=== PATIENT | male | born 1955 | race Hispanic/Latino ===

== ENCOUNTER 2020-06-08 15:45 | Emergency (ER) | payer MEDICARE ==
[~2020-06-08] VITALS: Ht 162.6 cm; Wt 68.0 kg
--- NOTE | 2020-06-08 17:39 | Emergency Department Note ---
History of Present Illnes History of Present Illness Chief Complaint: General Medicine Complaints History of Present Illness This is a 64 year old male c/o non radiating right shoulder pain x 3 weeks denies trauma states pain came on suddenly. He has been taking [place] for his pain at home. Historian: Patient Arrival Mode: Car History limited by: language barrier Onset (how long ago): week(s) (3) Radiation: Reports neck Severity: moderate Onset quality: sudden Duration (how long): day(s) (3) Timing of current episode: constant Progression: worsening Relieving factors: none, immobilization Exacerbating factors: movement Associated symptoms: Reports denies other symptoms Past Medical/Family History Physician Review I have reviewed the patient's past medical and family history. Any updates have been documented here. Past Medical History Recent Fever: No Clinical Suspicion of Infectio: No New/Unexplained Change in Ment: No Past Medical History: Diabetes, Anemia Other Medical History: schizophrenia bipolar Past Surgical History: Cholecysctectomy, Appendectomy, Hernia Repair Social History Physically hurt or threatened: No Review of Systems Review of Systems Constitutional: Reports no symptoms EENTM: Reports no symptoms Cardiovascular: Reports no symptoms Respiratory: Reports no symptoms Gastrointestinal: Reports no symptoms Genitourinary: Reports no symptoms Musculoskeletal: Reports no symptoms, Reports as per HPI, Reports joint pain (R shoulder) Integumentary: Reports no symptoms Neurological: Reports no symptoms Psychological: Reports no symptoms Endocrine: Reports no symptoms Hematological/Lymphatic: Reports no symptoms Physical Exam Related Data Allergies: Coded Allergies: No Known Allergies (Unverified , 06/08/20) Triage Vital Signs Vital Signs Date Time Temp Pulse Resp B/P (MAP) Pulse Ox O2 Delivery O2 Flow Rate FiO2 06/08/20 16:09 97.9 66 18 107/72 99 Room Air Vital signs reviewed: Yes Physical Exam CONSTITUTIONAL Constitutional: Present well-developed, Present well-nourished HENT HENT: Present normocephalic, Present atraumatic, Present oropharynx clear/moist, Present nose normal HENT L/R: Present left ext ear normal, Present right ext ear normal EYES Eyes: Reports PERRL, Reports conjunctivae normal NECK Neck: Present ROM normal PULMONARY Pulmonary: Present effort normal, Present breath sounds normal CARDIOVASCULAR Cardiovascular: Present regular rhythm, Present heart sounds normal, Present ca pillary refill normal, Present normal rate GASTROINTESTINAL Abdominal: Present soft, Present nontender, Present bowel sounds normal GENITOURINARY Genitourinary: Present exam deferred SKIN Skin: Present warm, Present dry MUSCULOSKELETAL Musculoskeletal: Present ROM normal, Present other (Normal ORM of R shoulder and no significant ternderness noted. 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 Exam shows no signs of trauma and he has full range of motion of the right arm. Pain is graduated by movement. Pulses are intact and he retained sensation. Initial differential includes cardiac mimic versus muscular skeletal pain versus rotator cuff injury. Cardiopulmonary workup is benign as well as x-ray of the right shoulder. We'll refer him to orthopedics and instructed him to take his pain medication at home. Patient states agreement to plan and is appropriate for discharge. Workup is largely unremarkable and instructed him to use his pain medications at home. He will follow up with regular provider or orthopedics if he continues to have this pain. Patient is appropriate for discharge. Part of this note was dictated with Filomena and is subject to some recognition errors. Reassessment Reassessment time: 19:00 Assessment & Plan Final Impression: (1) Shoulder pain Depart Disposition: HOME, SELF-CARE Last Vital Signs Date Time Temp Pulse Resp B/P (MAP) Pulse Ox O2 Delivery O2 Flow Rate FiO2 06/08/20 16:09 97.9 66 18 107/72 99 Room Air Abraham Brady MD Jun 08, 2020 17:39
--- NOTE | 2020-06-08 18:29 | Diagnostic Imaging Report ---
Examination: Single AP view of the chest. COMPARISON: None. INDICATION: Shoulder pain DISCUSSION: Lines/tubes: None. Lungs: The lungs are well inflated and clear. No pneumonia or pulmonary edema. Pleura: No pleural effusion or pneumothorax. Heart and mediastinum: The heart and the mediastinum are unremarkable. Bones and soft tissues: No acute bony abnormalities. IMPRESSION: 1. No acute cardiopulmonary abnormalities. Signed by: Dr. Luis Davis M.D. on 06/08/2020 6:26 PM
--- NOTE | 2020-06-08 18:30 | Diagnostic Imaging Report ---
Exam: Right shoulder 2 views History: Shoulder pain Comparison: None. Findings: No fracture or malalignment. Mild acromioclavicular and glenohumeral arthrosis. No abnormal soft tissue calcification or soft tissue defect. Impression: No acute osseous abnormality Signed by: Dr. Luis Davis M.D. on 06/08/2020 6:27 PM
[2020-06-08 18:37] LABS: BASOPHILS # (AUTO) 0.1 (0.0-0.1); EOSINOPHILS # (AUTO) 0.2 (0.0-0.4); EOSINOPHILS % 2.4 % (0.0-6.0); HEMATOCRIT 35.2 % (38.2-49.6); HEMOGLOBIN 11.1 g/dL (14.0-18.0); LYMPHOCYTES # (AUTO) 1.4 (1.0-3.2); LYMPHOCYTES % 20.6 % (18.0-39.1); MEAN CORPUSCULAR HEMOGLOBIN 28.5 pg (28-32); MEAN CORPUSCULAR HGB CONC 31.5 g/dL (31-35); MEAN CORPUSCULAR VOLUME 90.5 fL (81-99); MONOCYTES # (AUTO) 0.3 (0.2-0.8); MONOCYTES % 4.4 % (4.4-11.3); NEUTROPHILS # (AUTO) 4.8 (2.1-6.9); NEUTROPHILS % 71.5 % (38.7-80.0); PLATELET COUNT 108 x10e3/uL (140-360); RED BLOOD COUNT 3.89 x10e6/uL (4.3-5.7); RED CELL DISTRIBUTION WIDTH 15.1 % (11.7-14.4)
[2020-06-08 18:40] LABS: INR 0.93; PROTHROMBIN TIME 12.9 seconds (11.9-14.5)
[2020-06-08 18:41] LABS: PARTIAL THROMBOPLASTIN TIME 26.9 seconds (23.8-35.5)
[2020-06-08 18:47] LABS: ALANINE AMINOTRANSFERASE 8 IU/L (0-55); ALBUMIN 3.8 g/dL (3.5-5.0); ALBUMIN/GLOBULIN RATIO 1.2 (0.8-2.0); ALKALINE PHOSPHATASE 77 IU/L (40-150); BLOOD UREA NITROGEN 13 mg/dL (7-26); BUN/CREATININE RATIO 14 (6-25); CALCIUM 8.6 mg/dL (8.4-10.2); CARBON DIOXIDE 24 mmol/L (22-29); CHLORIDE 106 mmol/L (98-107); CREATINE KINASE 65 IU/L (30-200); CREATININE, SERUM 0.95 mg/dL (0.72-1.25); EST GLOMERULAR FILTRATION RATE > 60 ML/MIN (60-); GLUCOSE 94 mg/dL (74-118); SODIUM 139 mmol/L (136-145)
[2020-06-08 19:25] LABS: LYMPHOCYTES % (MANUAL) 22 % (19-48); MONOCYTES % (MANUAL) 5 % (3.4-9.0); NEUTROPHILS % (MANUAL) 70 % (40-74); PLATELET ESTIMATE SLIGHTLY DECREASED; PLATELET MORPHOLOGY COMMENT FEW LARGE; RBC MORPHOLOGY COMMENT NORMAL
[2020-06-08] MEDS ORDERED: TRAMADOL HCL 50 MG TAB PO ONE (22:15)
[2020-06-08 23:25] VITALS: BP 128/74
== END 2020-06-08 23:34 | disposition home or self-care (01) ==
LOC: ER 16:10
DX: M25.511 Pain in right shoulder (principal); E11.9 Type 2 diabetes mellitus without complications; D64.9 Anemia, unspecified; F20.9 Schizophrenia, unspecified
CPT/HCPCS: 36415; 71045; 80053; 82550; 82553; 84484; 85025; 85610; 85730; 93005; 99283

== ENCOUNTER → 2020-06-26 | Outpatient (CLI) | payer MEDICARE ==
--- NOTE | 2020-06-26 12:33 | Diagnostic Imaging Report ---
TECHNIQUE: Magnetic resonance imaging of the RIGHT SHOULDER was performed WITHOUT injected contrast. COMPARISON: Right shoulder radiographs 06/08/2020 HISTORY: Right shoulder pain FINDINGS: Evaluation is partially limited by motion artifacts. MUSCLES AND TENDONS: Rotator Cuff: Tendons: Supraspinatus: Mild tendinosis with fraying of the superficial undersurface fibers without discrete tear. Infraspinatus: Mild tendinosis with fraying of the superficial bursal sided fibers without discrete tear. Teres Minor: Intact Subscapularis: Intact. Muscles: No focal muscle atrophy. Biceps Tendon: The long head of the biceps tendon is intact and within the intertubercular groove. GLENOHUMERAL JOINT: Glenoid Labrum: Questionable small tear at the superior labrum. Degenerative fraying at the posterior superior labrum. Articular Cartilage: Mild cartilage thinning along the glenoid. No focal full-thickness defect. AC JOINT AND ACROMION: Mild hypertrophic degenerative changes of the acromioclavicular joint. Type II acromion. BONE: No fractures or acute osseous abnormalities. No infiltrative bone marrow replacing signal abnormalities. Focal subchondral reactive cystic changes along the posterior aspect of the greater tuberosity. SOFT TISSUES: Otherwise, the soft tissues appear unremarkable. IMPRESSION: 1. Mild rotator cuff tendinosis without discrete tear. 2. Mild degenerative changes of the glenohumeral joint with questionable small tear at the superior labrum and degenerative fraying at the posterosuperior labrum. 3. Mild hypertrophic degenerative changes of the acromioclavicular joint. Signed by: Riccardo Zuñiga MD on 06/26/2020 12:29 PM
== END ==
LOC: MRI 09:32
PROVIDERS: ATTEND Specialist
DX: M25.511 Pain in right shoulder (principal)

== ENCOUNTER 2020-09-01 10:39 | Outpatient (RCR) | payer MEDICARE | END 2020-09-05 | LOC: PT 10:39 | PROVIDERS: ATTEND Specialist | DX: S13.4XXA Sprain of ligaments of cervical spine, initial encounter (principal); S23.3XXA Sprain of ligaments of thoracic spine, initial encounter ==

== ENCOUNTER → 2020-10-05 | Outpatient (RCR) | payer MEDICARE | LOC: PT 09-08 12:26 | PROVIDERS: ATTEND Specialist | DX: S13.4XXA Sprain of ligaments of cervical spine, initial encounter (principal) ==

== ENCOUNTER → 2022-07-27 | Day surgery (SDC) | payer MEDICARE ==
[2022-07-26 10:36] LABS: BASOPHILS # (AUTO) 0.1 (0.0-0.1); BASOPHILS % 1.2 % (0.0-1.0); EOSINOPHILS # (AUTO) 0.4 (0.0-0.4); EOSINOPHILS % 7.2 % (0.0-6.0); HEMATOCRIT 35.2 % (38.2-49.6); HEMOGLOBIN 10.9 g/dL (14.0-18.0); LYMPHOCYTES # (AUTO) 1.4 (1.0-3.2); LYMPHOCYTES % 27.9 % (18.0-39.1); MEAN CORPUSCULAR HEMOGLOBIN 29.8 pg (28-32); MEAN CORPUSCULAR VOLUME 96.2 fL (81-99); MONOCYTES # (AUTO) 0.2 (0.2-0.8); MONOCYTES % 4.6 % (4.4-11.3); NEUTROPHILS # (AUTO) 2.9 (2.1-6.9); NEUTROPHILS % 58.9 % (38.7-80.0); PLATELET COUNT 150 x10e3/uL (140-360); RED BLOOD COUNT 3.66 x10e6/uL (4.3-5.7)
[2022-07-26 11:11] LABS: ANION GAP 14.3 mmol/L (8-16); CALCIUM 9.1 mg/dL (8.4-10.2); CREATININE, SERUM 1.06 mg/dL (0.72-1.25); POTASSIUM 4.3 mmol/L (3.5-5.1)
[~2022-07-27] MED LIST: BUPIVACAINE 0.25% 30ML SDV ONE; CLONAZEPAM0.5 MG PO; DEXAMETHASONE SOD PHOS INJ 4 MG/ML SDV ONE; FENTANYL CITRATE/PF 100MCG/2 ML INJ ONE; HYDROCODON-ACE1 EAC8 PO; HYDROCODONE/APAP 7.5MG-325MG 1 EA TAB ONE; LEVOTHYROXINE50 MCG PO; LIDOCAINE 1% W/EPINEPHRINE 20 ML VIAL ONE; LIDOCAINE HCL 2% LOCAL INJ 5 ML SDV VIAL INJ ONE; LISINOPRIL10 MG PO; ONDANSETRON HCL INJ 2MG/ML 2ML 2 MG/ML VIAL ONE; PHENYLEPHRINE HCL 1% 10 MG/ML VIAL ONE; POVIDONE IODINE 0.05% 0.05 % ML PO ONE; PROPOFOL IV EMULSION 10 MG/ML 20 ML VIAL ONE; SEROQUEL25 MG PO; SEVOFLURANE INHAL SOLN 250 ML PEN BTL ONE
[2022-07-27 12:55] VITALS: BP 122/68
== END | disposition home or self-care (01) ==
LOC: OR 07:25
PROVIDERS: ATTEND Surgery
DX: K40.90 Unilateral inguinal hernia, without obstruction or gangrene, not specified as recurrent (principal); D17.6 Benign lipomatous neoplasm of spermatic cord; I10 Essential (primary) hypertension; G89.29 Other chronic pain; E03.9 Hypothyroidism, unspecified; R73.03 Prediabetes; K21.9 Gastro-esophageal reflux disease without esophagitis; I44.30 Unspecified atrioventricular block; M54.9 Dorsalgia, unspecified; F41.9 Anxiety disorder, unspecified; Z01.810 Encounter for preprocedural cardiovascular examination; Z01.812 Encounter for preprocedural laboratory examination; Z01.818 Encounter for other preprocedural examination; Z20.822 Contact with and (suspected) exposure to COVID-19; Z79.899 Other long term (current) drug therapy
CPT/HCPCS: 0223U; 36415; 49505; 71046; 80048; 85025; 93005; C1781; J1100; J2001; J2370; J2405; J2704; J3010

== ENCOUNTER 2023-01-17 04:18 | Emergency (ER) | payer MEDICARE, OTHER ==
[~2023-01-17] VITALS: Ht 165.1 cm; Wt 74.8 kg
[~2023-01-17 04:18] MED LIST changes: -BUPIVACAINE 0.25% 30ML SDV ONE; -DEXAMETHASONE SOD PHOS INJ 4 MG/ML SDV ONE; -FENTANYL CITRATE/PF 100MCG/2 ML INJ ONE; -HYDROCODONE/APAP 7.5MG-325MG 1 EA TAB ONE; -LIDOCAINE 1% W/EPINEPHRINE 20 ML VIAL ONE; -LIDOCAINE HCL 2% LOCAL INJ 5 ML SDV VIAL INJ ONE; -ONDANSETRON HCL INJ 2MG/ML 2ML 2 MG/ML VIAL ONE; -PHENYLEPHRINE HCL 1% 10 MG/ML VIAL ONE; -POVIDONE IODINE 0.05% 0.05 % ML PO ONE; -PROPOFOL IV EMULSION 10 MG/ML 20 ML VIAL ONE; -SEVOFLURANE INHAL SOLN 250 ML PEN BTL ONE
[2023-01-17] MEDS ORDERED: ONDANSETRON HCL INJ 2MG/ML 2ML 2 MG/ML VIAL IV STA (04:37)
[2023-01-17 04:46] LABS: BASOPHILS % 0.5 % (0.0-1.0); EOSINOPHILS # (AUTO) 0.1 (0.0-0.4); EOSINOPHILS % 1.8 % (0.0-6.0); HEMATOCRIT 30.7 % (38.2-49.6); HEMOGLOBIN 9.6 g/dL (14.0-18.0); LYMPHOCYTES # (AUTO) 0.8 (1.0-3.2); LYMPHOCYTES % 10.8 % (18.0-39.1); MEAN CORPUSCULAR HEMOGLOBIN 27.4 pg (28-32); MEAN CORPUSCULAR HGB CONC 31.3 g/dL (31-35); MEAN CORPUSCULAR VOLUME 87.5 fL (81-99); MONOCYTES # (AUTO) 0.3 (0.2-0.8); MONOCYTES % 3.9 % (4.4-11.3); NEUTROPHILS # (AUTO) 6.3 (2.1-6.9); NEUTROPHILS % 82.6 % (38.7-80.0); PLATELET COUNT 147 x10e3/uL (140-360); RED BLOOD COUNT 3.51 x10e6/uL (4.3-5.7); RED CELL DISTRIBUTION WIDTH 14.1 % (11.7-14.4)
[2023-01-17] MEDS ORDERED: ONDANSETRON HCL INJ 2MG/ML 2ML 2 MG/ML VIAL ONE (04:52)
[2023-01-17 05:06] LABS: ALBUMIN/GLOBULIN RATIO 1.1 (0.8-2.0); ANION GAP 14.7 mmol/L (8-16); CALCIUM 9.6 mg/dL (8.4-10.2); CREATININE, SERUM 1.05 mg/dL (0.72-1.25); POTASSIUM 3.7 mmol/L (3.5-5.1)
[2023-01-17 05:13] LABS: CREATINE KINASE MB 0.9 ng/mL (0-5.0)
[2023-01-17 05:34] LABS: CLARITY,URINE SL CLOUDY (CLEAR); COLOR,URINE AMBER (YELLOW); LEUKOCYTE ESTERASE ,URINE TRACE (NEGATIVE); NITRITE,URINE POSITIVE (NEGATIVE); PROTEIN,URINE DIPSTICK 1+ (NEGATIVE)
[2023-01-17 05:35] LABS: KETONES,URINE 1+ (NEGATIVE); URINE UROBILINOGEN 1 mg/dL (0.2 - 1)
[2023-01-17 05:39] LABS: BACTERIA,URINE MANY /HPF; EPITHELIAL CELLS,URINE FEW /LPF; RBC,URINE 0-5 /HPF (0-5); WBC,URINE (MAN) 21-50 /HPF (0-5)
[2023-01-17 05:40] LABS: MUCUS,URINE FEW (RARE)
[2023-01-17] MEDS ORDERED: IOPAMIDOL 370 MG/ML 100 ML INFUS..BTL INJ ONE (05:58)
[2023-01-17] MEDS ORDERED: CEFTRIAXONE 1 GM VIAL ONE (07:00)
[2023-01-17] MEDS ORDERED: CEFDINIR300 MG PO (07:18)
[2023-01-17] MEDS ORDERED: ONDANSETRON ODT4 MG PO (07:18)
[2023-01-17 07:43] VITALS: BP 107/60
== END 2023-01-17 07:40 | disposition home or self-care (01) ==
LOC: ER 04:24
DX: R10.12 Left upper quadrant pain (principal); R11.2 Nausea with vomiting, unspecified; E11.9 Type 2 diabetes mellitus without complications; D64.9 Anemia, unspecified; F20.9 Schizophrenia, unspecified
CPT/HCPCS: 36415; 74177; 80053; 81001; 82550; 82553; 83690; 84484; 85025; 93005; 99284; C9113; J0696; J2405; Q9967